=== PATIENT | female | born 1965 | race Caucasian/White ===

== ENCOUNTER 2017-03-06 14:43 | Emergency (ER) | payer OTHER ==
[~2017-03-06] VITALS: Ht 170.2 cm; Wt 161.9 kg
[2017-03-06 15:22] VITALS: BP 150/94
== END 2017-03-06 16:51 | disposition home or self-care (01) ==
LOC: ED 14:43
DX: G43.909 Migraine, unspecified, not intractable, without status migrainosus (principal)

== ENCOUNTER 2017-05-14 15:29 | Emergency (ER) | payer OTHER ==
[2017-05-14 15:55] VITALS: BP 141/74
== END 2017-05-14 17:43 | disposition home or self-care (01) ==
LOC: ED 15:29
DX: Z76.0 Encounter for issue of repeat prescription (principal); G43.909 Migraine, unspecified, not intractable, without status migrainosus; M19.90 Unspecified osteoarthritis, unspecified site; Z88.1 Allergy status to other antibiotic agents

== ENCOUNTER 2017-06-11 16:55 | Emergency (ER) | payer OTHER ==
[~2017-06-11] VITALS: Ht 170.2 cm; Wt 156.9 kg
[2017-06-11 17:10] VITALS: Ht 170.2 cm; Wt 156.9 kg
[2017-06-11 19:24] VITALS: BP 158/81
== END 2017-06-11 19:24 | disposition home or self-care (01) ==
LOC: ED 16:55
DX: G43.909 Migraine, unspecified, not intractable, without status migrainosus (principal); R03.0 Elevated blood-pressure reading, without diagnosis of hypertension; M19.90 Unspecified osteoarthritis, unspecified site; Z88.1 Allergy status to other antibiotic agents

== ENCOUNTER 2017-07-25 20:58 | Emergency (ER) | payer OTHER ==
[~2017-07-25] VITALS: Ht 170.2 cm; Wt 154.2 kg
[2017-07-25 21:04] VITALS: Ht 170.2 cm; Wt 154.2 kg
[2017-07-25 21:36] VITALS: BP 153/83
== END 2017-07-25 21:36 | disposition home or self-care (01) ==
LOC: ED 20:58
DX: G43.909 Migraine, unspecified, not intractable, without status migrainosus (principal); M19.90 Unspecified osteoarthritis, unspecified site; R11.2 Nausea with vomiting, unspecified; F17.200 Nicotine dependence, unspecified, uncomplicated; Z88.1 Allergy status to other antibiotic agents

== ENCOUNTER 2017-08-03 23:51 | Emergency (ER) | payer OTHER ==
[~2017-08-03] VITALS: Ht 170.2 cm; Wt 163.9 kg
[2017-08-04 00:15] VITALS: Ht 170.2 cm; Wt 163.9 kg
[2017-08-04 02:10] VITALS: BP 132/72
== END 2017-08-04 02:40 | disposition left against medical advice (07) ==
LOC: ED 23:51
DX: Z53.21 Procedure and treatment not carried out due to patient leaving prior to being seen by health care provider (principal)